=== PATIENT | female | born 1995 | race African-American/Black ===

== ENCOUNTER 2023-03-03 22:20 | Emergency (ER) | payer MEDICAID ==
[~2023-03-03] VITALS: Ht 162.6 cm; Wt 89.0 kg
[2023-03-03 22:27] VITALS: O2SAT 100
[2023-03-04 02:30] VITALS: BP 124/74
[2023-03-04] MEDS ORDERED: IBUP-2029 MT (02:30)
[2023-03-04] MEDS ORDERED: IBUPROFEN 600MG TABLET PO ONE (02:30)
[2023-03-04 02:52] VITALS: PULSE 85; RESP 12; TEMP 98.8
== END 2023-03-04 02:58 | disposition home or self-care (01) ==
LOC: ER 22:20
DX: R51.9 Headache, unspecified (principal)
CPT/HCPCS: 81025; 99284